=== PATIENT | male | born 1985 | race Caucasian/White ===

== ENCOUNTER 2023-01-04 06:57 | Day surgery (SDC) | payer OTHER ==
[~2023-01-04] VITALS: Ht 185.4 cm; Wt 121.0 kg
[~2023-01-04 06:57] MED LIST: BENADRYL25 M2 PO; NO HOME MEDICATIONS; PEPCID40 MG PO; PHENERGAN 25 TA25 MG PO; PREDNISONE20 MG PO
[2023-01-04 07:28] VITALS: BP 145/94; PULSE 61; TEMP 98.3
[2023-01-04] MEDS ORDERED: CLARITIN 1010 MG/TAB PO (07:32)
[2023-01-04 08:30] VITALS: BP 141/88; PULSE 62; TEMP 97.6
[2023-01-04 08:45] VITALS: BP 135/89; PULSE 65
[2023-01-04 09:00] VITALS: BP 148/99; PULSE 58
--- NOTE | 2023-01-04 09:21 | NUR ---
0830: PATIENT TO BAY 2 PER CART FROM ENDO SUITE, REPORT RECEIVED FROM ENDO NURSE. PATIENT AMBULATED FROM CART TO RECLINER X2 ASSIST. VS OBTAINED. BREATHING EVEN AND UNLABORED. PATIENT REQUESTING WATER AT THIS TIME BUT REFUSES FOOD. RESTING IN RECLINER. DAD AT SIDE. CALL LIGHT IN REACH. 0840: DR. JACOBS IN TO SPEAK WITH PATIENT AT THIS TIME. 0845: VS REMAIN STABLE. PATIENT TOLERATING WATER. STILL REFUSING FOOD. NO COMPLAINTS AT THIS TIME. REAMAINS IN RECLINER. DAD AT SIDE. CALL LIGHT IN REACH. 0900: PATIENT CONTINUES TO TOLERATE WATER. NO COMPLAINTS AT THIS TIME. PATIENT SITTING IN RECLINER TALKING WITH DAD. CALL LIGHT IN REACH. 0910: DISCHARGE EDUCATION COMPLETED AT THIS TIME. PATIENT STATED UNDERSTANDING OF INSTRUCTION. ENCOURAGED PATIENT TO SPEAK WITH PRIMARY CARE PROVIDER REGAURDING ELEVATED B/P. PATIENT STATED HE IS ALREADY SPEAKING WITH HIM. DISCHARGE PAPERWORK GIVEN TO PATIENT. IV DC'D AT THIS TIME. PATIENT DENIES ANY ASSISTANCE WITH DRESSING. 0915: PATIENT OFF UNIT PER WHEELCHAIR. PATIENT DISCHARGED TO HOME WITH DAD PER PERSONAL VEHICLE.
== END 2023-01-04 09:15 | disposition home or self-care (01) ==
LOC: SDCO 06:57
DX: Z12.11 Encounter for screening for malignant neoplasm of colon (principal); D12.5 Benign neoplasm of sigmoid colon; K57.30 Diverticulosis of large intestine without perforation or abscess without bleeding; K57.92 Diverticulitis of intestine, part unspecified, without perforation or abscess without bleeding; K64.1 Second degree hemorrhoids; E66.9 Obesity, unspecified
CPT/HCPCS: J2704; J7120